=== PATIENT | female | born 1945 | race Caucasian/White ===

== ENCOUNTER → 2022-01-07 10:44 | Outpatient (CLI) | payer MEDICARE, OTHER, SELFPAY ==
[2022-01-07 15:27] LABS: COVID19 -Nasal RAPID Negative (Negative)
== END ==
PROVIDERS: PCP Nurse Practitioner Family; Visit Provider Nurse Practitioner Family
DX: Z20.822 Contact with and (suspected) exposure to COVID-19 (principal)
CPT/HCPCS: 87635; C9803

== ENCOUNTER 2022-01-09 12:06 | Day surgery (SDC) | payer MEDICARE, OTHER, SELFPAY ==
[2022-01-09] VITALS (7 sets, daily range): BP systolic 100–130; BP diastolic 66–84; PULSE 65–73; RESP 15–19; TEMP 36–36.8; O2SAT 95–100; BMI 35.5
--- NOTE | 2022-01-09 | PATH_ITS ---
[facility] Accession Number: [id number] No. of containers..01 Tissue . 01 Material submitted: . colon - ASCENDING COLON POLYP . 02 Diagnosis: Ascending Colon, Polyp, Biopsy: Sessile serrated adenoma. MRV 01/14/2022 1042 Local . 02 Electronically signed: . Dominique Sutton MD, Pathologist NPI- [id number] . 01 Gross description: . ASCENDING COLON POLYP: Received in formalin is 1 fragment(s) of maldonado, soft tissue measuring 0.6 x 0.5 x 0.3 cm submitted entirely in 1 cassette(s) /STEPHANIE 01/10/2022 2211 Local . 02 Pathologist provided ICD-10: D12.2 . 02 CPT . 948272 Specimen Comment: A courtesy copy of this report has been sent to [phone] Performed at: 01 [facility] Cytology [address] [facility], [place], [place] [id number] MD Harry Garcia MD Phone: [phone] Performed at: [address] [facility] [place] [address] [place], [place] [id number] MD Dominique Sutton MD Phone: [phone]
[2022-01-09] MEDS: SODIUM CHLORIDE 0.9% 1,000 ML 84 ML IV (13:33)
--- NOTE | 2022-01-09 13:58 | PM.HP.1 ---
History of Present Illness History of Present Illness Date Patient Seen: 01/09/22 Chief complaint: DX COLONOSCOPY Narrative: Recurrent serrated adenomatous polyps need for follow-up and to rule out serrated polyposis syndrome Patient History Medical History (Updated 01/08/22 @ 16:20 by Kayla Burris RN) Chest pressure Surgical History (Updated 01/08/22 @ 16:20 by Kayla uBrris RN) History of bunionectomy of both great toes History of colonoscopy with polypectomy History of tonsillectomy Family & Social History Social History: household members spouse Tobacco & Substance use: Tobacco type cigarettes Smoking Status Former smoker alcohol intake current alcohol intake frequency 0-2 drinks per day Substance Use Type does not use Meds Home Medications and Allergies Home Medications Medication Instructions Recorded Confirmed Type acyclovir 400 mg tablet 400 mg PO DAILY 01/08/22 01/09/22 History aspirin 81 mg tablet,delayed 81 mg PO DAILY 01/08/22 01/09/22 History release (Aspirin Low Dose) atorvastatin 40 mg tablet 40 mg PO DAILY 01/08/22 01/09/22 History calcium 600 mg capsule 600 mg PO DAILY 01/08/22 01/09/22 History cholecalciferol (vitamin D3) 50 50 mcg PO DAILY 01/08/22 01/09/22 History mcg (2,000 unit) capsule (Vitamin D3) levothyroxine 137 mcg tablet 137 mcg PO DAILY 01/08/22 01/09/22 History losartan 50 mg tablet 50 mg PO BID 01/08/22 01/09/22 History metoprolol succinate 25 mg 25 mg PO DAILY 01/08/22 01/09/22 History tablet,extended release 24 hr multivitamin 1 tab PO DAILY 01/08/22 01/08/22 History paroxetine HCl 10 mg tablet 10 mg PO DAILY 01/08/22 01/08/22 History Allergies Allergy/AdvReac Type Severity Reaction Status Date / Time penicillin V Allergy Severe Unlisted Verified 01/08/22 16:21 Exam Vital Signs (past 8 hours): - 01/09/22 13:20 Temperature 98.3 F Pulse Rate 73 Respiratory Rate 16 Blood Pressure 114/75 Pulse Oximetry 95 Oxygen Delivery Method Room Air Narrative Exam Narrative: Oropharynx free of lesions Chest clear to auscultation percussion Cardiac exam reveals no S3 or murmur Assessment & Plan Assessment & Plan narrative: Serrated adenomatous polyps rule outs serrated polyposis syndrome in just to follow-up on multiple adenomas. Risks, benefits, alternatives have been Time Spent With Patient Critical Care time: I spent a total of [] minutes of critical care time on this patient's care today; this time is exclusive of procedural time.
--- NOTE | 2022-01-09 14:00 | PM.OP.COLON ---
Operative Date/Time/Diagnoses Date of procedure: 01/09/22 Pre-op diagnosis: See indication and findings Procedure & Clinicians Study performed: Colonoscopy Indications: History of multiple serrated polyps and some quite large. Need for follow-up in general but also to rule out serrated polyposis syndrome Surgeon: Torie Mejia Procedure Notes Procedure in detail: After informed consent was obtained the patient was placed in left lateral decubitus position. The video colonoscope was introduced the rectum slowly advanced cecum. On slow withdrawal mucosa was carefully examined. Scope was removed. The patient tolerated procedure well. Blood loss none Complications none Sedation mac Findings 1. Large flat 2.5 x 2 cm polyp with a mucus cap and a yellowish tinge at the distal border of the most proximal tattoo behind a fold. This was selectively injected with saline and in 3 large chunks of polyp were removed. One piece was lost. The remainder of the polyp was treated at 20 w is 0.8 L APC and seen to be completely treated. 2. Otherwise negative colonoscopy to cecum Unfortunately Caroline will need follow-up colonoscopy in 6 months with possible APC to evaluate this area. This can either be done in an a [place] with Dr. Silva or myself. Photographs were taken to be incorporated into our EMR.
== END 2022-01-09 15:23 | disposition home or self-care (01) ==
PROVIDERS: PCP Registered Nurse; Referring Provider Internal Medicine Gastroenterology; Visit Provider Internal Medicine Gastroenterology
PROC: 0DJD8ZZ Inspection of Lower Intestinal Tract, Via Natural or Artificial Opening Endoscopic (ICD-10-PCS; CPT 45378; principal; 2022-01-09 14:00)
DX: Z09 Encounter for follow-up examination after completed treatment for conditions other than malignant neoplasm (principal); Z86.010 Personal history of colon polyps; D12.3 Benign neoplasm of transverse colon
CPT/HCPCS: 45390; J2704

== ENCOUNTER → 2023-01-02 11:54 | Outpatient (CLI) | payer MEDICARE, OTHER, SELFPAY ==
--- NOTE | 2023-01-02 11:56 | DI.MRI.S_ITS ---
PROCEDURE: MR HIP LT WO CON INDICATIONS: Pain in left hip TECHNIQUE: Noncontrast coronal T1 spin echo and STIR through the bony pelvis. Coronal and axial T2 fast spin echo with fat saturation, sagittal T1 spin echo, and oblique axial T2 fast spin echo with fat saturation through the hip. COMPARISON: None. FINDINGS: Image quality: Excellent. Bones and joints: Moderate bilateral hip joint osteoarthritic changes are seen with joint space narrowing, subchondral sclerosis and small marginal osteophyte formation. No fracture or dislocation. Prominence of superior left femoral head neck junction is noted which can be seen associated with CAM type femoral acetabular impingement. Nonspecific oval area of heterogeneously T2 hyperintense signal involving bilateral proximal femoral shaft medullary space is seen and may represent areas of osteonecrosis. No avascular necrosis of the femoral heads. Degenerative disc disease throughout visualized lower lumbar spine is seen. Tendons and ligaments: Distal left gluteus medius tendinosis and low-grade partial-thickness tear is seen at its insertion on the greater trochanter. Distal left gluteus minimus tendinosis is also noted at its insertion on greater trochanter. The nearby proximal iliotibial band also appears intact. The iliopsoas tendon appears intact, without adjacent bursal fluid collections or evidence for impingement syndrome. The origin of the hamstring tendon is intact at the ischial tuberosity, as well as the associated sacrotuberous ligament. The straight and reflected heads of the rectus femoris muscle origin appear intact, as well as the conjoint tendon. The ligamentum teres appears intact where visualized. Labrum and cartilage: There is diffuse loss of cartilage in left femoral head. Signal abnormality and contour irregularity involving superior anterior left hip labrum at 12 to 1 o'clock position is seen suggestive of superior anterior left hip labral tear. Soft tissues: Visualized muscles demonstrate normal bulk and internal signal. Quadratus femoris muscle demonstrates no internal edema to suggest ischiofemoral impingement. The proximal sciatic neurovascular bundle appears normal adjacent to the hamstring tendons. No free pelvic fluid. Bladder wall thickness is normal. Genitourinary structures and bowel loops appear normal where visualized. IMPRESSION: 1. Symmetric appearing moderate bilateral hip joint osteoarthritis. No hip fracture or dislocation. No evidence of avascular necrosis of femoral head. Nonspecific marrow signal abnormality involving proximal bilateral femoral shaft medullary space which may indicate areas of early osteonecrosis more notably in left proximal femoral shaft suggest clinical correlation and radiographic follow-up. 2. Distal left gluteus medius tendinosis and low-grade partial-thickness tear. Distal left gluteus minimus tendinosis. No other muscle or tendon signal abnormalities. 3. Suggestion of superior anterior left hip labral tear at 12 to 1 o'clock position. Dictated by: Luis Moreno M.D. on 01/02/2023 at 20:40 Approved by: Luis Moreno M.D. on 01/02/2023 at 21:41
--- NOTE | 2023-01-02 11:56 | DI.MRI.S_ITS ---
PROCEDURE: MR LUMBAR SPINE WO CON INDICATIONS: Radiculopathy, lumbar region TECHNIQUE: Noncontrast sagittal T1 spin echo and T2 fast echo, sagittal STIR, and T2 fast spin echo through the lumbar spine. In cases with scoliosis, additional coronal T2 fast spin echo may be performed. COMPARISON: None. FINDINGS: Image quality: Excellent. Alignment and Curvature: There is normal bony alignment. Bone Marrow: Marrow is of normal overall signal. No acute vertebral body compression fractures. Spinal Cord: Conus medullaris terminates at the T12-L1 level. Visualized cord demonstrates normal signal and size. Paraspinous Soft Tissues: No paravertebral masses. T12-L1: Mild central posterior disc protrusion. This indents on the thecal sac resulting in mild canal stenosis. Additionally, there is a right posterior lateral disc protrusion which narrows the right lateral recess as well as the right foramen. There is flattening deformity on the exiting right T12 nerve root. L1-L2: Disc bulge. Facet hypertrophy. Epidural lipomatosis. Moderate canal stenosis. Mild left foraminal narrowing. L2-L3: Disc bulge. Facet hypertrophy. Short pedicles. Epidural lipomatosis. Moderate canal stenosis. [id number] left foraminal narrowing. L3-L4: Short pedicles. Disc bulge. Facet and ligament hypertrophy. Moderate canal stenosis. No significant foraminal stenosis. L4-L5: Short pedicles. Prominent facet hypertrophy. Moderate central posterior disc protrusion. Epidural lipomatosis. Severe canal stenosis. Moderate bilateral foraminal narrowing with flattening deformity on the exiting bilateral L4 nerve roots. L5-S1: Bilateral facet hypertrophy. No canal stenosis. No significant foraminal stenosis. IMPRESSION: 1. Patient has underlying short pedicles, as well as multilevel facet arthropathy. 2. There is multilevel canal stenosis extending from T12-L1 through L4-L5. 3. At T12-L1, a central posterior disc protrusion contributes to canal stenosis. There is also a right posterior lateral disc protrusion. 4. At L4-L5, a central posterior disc protrusion contributes to the underlying canal stenosis and foraminal stenosis, resulting in severe canal stenosis. 5. Canal stenosis is moderate at L1-L2, moderate at L2-L3, moderate at L3-L4, severe at L4-L5. 6. Multilevel foraminal narrowing as described above. Dictated by: Live Bobo M.D. on 01/02/2023 at 14:11 Approved by: Live Bobo M.D. on 01/02/2023 at 14:17
== END ==
PROVIDERS: PCP Registered Nurse; Referring Provider Registered Nurse; Visit Provider Registered Nurse
DX: M47.26 Other spondylosis with radiculopathy, lumbar region (principal); M47.27 Other spondylosis with radiculopathy, lumbosacral region; M51.16 Intervertebral disc disorders with radiculopathy, lumbar region; M48.05 Spinal stenosis, thoracolumbar region; M48.061 Spinal stenosis, lumbar region without neurogenic claudication; M16.0 Bilateral primary osteoarthritis of hip; S76.012A Strain of muscle, fascia and tendon of left hip, initial encounter; M25.552 Pain in left hip
CPT/HCPCS: 72148; 73721

== ENCOUNTER 2023-01-22 08:56 | Day surgery (SDC) | payer MEDICARE, OTHER, SELFPAY ==
--- NOTE | 2023-01-22 | PATH_ITS ---
[facility] Accession Number: [id number] No. of containers..02 Tissue . 01 Material submitted: . PART A: sigmoid colon - RECTUS SIGMOID PART B: rectum - ANAL RECTAL JUNCTION . 01 Diagnosis: A. Rectosigmoid Colon, Biopsy: Hyperplastic colonic mucosa. Negative or active, chronic, and microscopic colitis. Negative for dysplasia and malignancy. . B. Anorectal Junction, Biopsy: Fragments of traditional serrated adenoma. Please see comment. No evidence of malignancy. MRV 01/28/2023 1418 Local . 01 Comment: B. Current surveillance guidelines recommend that a traditional serrated adenoma should be treated similar to an advanced adenoma. Complete polypectomy and shortened surveillance interval are recommended. . 01 Electronically signed: . Dominique Sutton MD, Pathologist NPI- [id number] . 01 Gross description: . Part A: RECTUS SIGMOID: Received in formalin are 4 fragment(s) of maldonado, soft tissue measuring 0.2 x 0.2. x 0.2 cm to 0.2 x 0.1 x 0.1 cm submitted entirely in 1 cassette(s) Part B: ANAL RECTAL JUNCTION: Received in formalin are 3 fragment(s) of maldonado, soft tissue measuring 0.3 x 0.1 x 0.1 cm to 0.2 x 0.1 x 0.1 cm submitted entirely in 1 cassette(s) /CPE 01/24/2023 1038 Local . 01 Pathologist provided ICD-10: D12.8 . 01 CPT . 905392, 396673 Specimen Comment: A courtesy copy of this report has been sent to [phone] Performed at: 01 [facility] Cytology [address] [place] [address] [address] [facility], [place], [place] [id number] MD Harry Garcia MD Phone: [phone]
[2023-01-22 09:23] VITALS: BMI 37.1
[2023-01-22 09:38] VITALS: BP 116/79; PULSE 68; RESP 16; TEMP 37; O2SAT 96
--- NOTE | 2023-01-22 10:38 | P.OP.COLON_ITS ---
Operative Date/Time/Diagnoses Date of procedure: 01/22/23 Pre-op diagnosis: See indication and findings Procedure & Clinicians Study performed: Colonoscopy Indications: History of large difficult to remove colon polyps need for follow-up colonoscopy Surgeon: Torie Mejia Procedure Notes Procedure in detail: After informed consent was obtained patient was placed left lateral decubitus position. The video colonoscope was introduced the rectum slowly advanced cecum. Preparation was good. On slow withdrawal mucosa was carefully examined. The scope was removed. The patient tolerated procedure well. Blood loss none Complications none Sedation mac Findings 1. Large tattoo in the mid right colon. This was completely free of any adenomatous appearing tissue. 2. Additional smaller tattoo at 60 cm. Also free of any lesion 3. Five rectosigmoid polyps ring in size from 2 to 5 mm. All Jumbo biopsy re moved completely. 4. Skin tag versus polyp just inside the anal verge probably measuring 8 mm. The distal border seemed contiguous with moderate-sized hemorrhoid. Biopsies were therefore taken to rule out adenoma before deciding on therapy. Will be in touch with Caroline regarding her pathology.
--- NOTE | 2023-01-22 10:43 | P.HP_ITS ---
History of Present Illness History of Present Illness Date Patient Seen: 01/22/23 Chief complaint: Dx Colonoscopy w/poss bx Narrative: History of large and difficult to remove colon polyps with last procedure 1 year ago requiring APC. Need for follow-up colonoscopy. [facility] Medical History (Updated 01/08/22 @ 16:20 by Kayla Burris, RN) Chest pressure Surgical History (Updated 01/08/22 @ 16:20 by Kayla Burris RN) History of bunionectomy of both great toes History of colonoscopy with polypectomy History of tonsillectomy Social History household members: spouse Smoking Status: Former smoker alcohol intake: current Meds Home Medications and Allergies Home Medications Medication Instructions Recorded Confirmed Type acyclovir 400 mg tablet 400 mg PO DAILY 01/08/22 01/22/23 History aspirin 81 mg tablet,delayed 81 mg PO DAILY 01/08/22 01/22/23 History release (Roxann Low Dose Aspirin) atorvastatin 40 mg tablet 40 mg PO DAILY 01/08/22 01/22/23 History calcium 600 mg capsule 600 mg PO DAILY 01/08/22 01/22/23 History cholecalciferol (vitamin D3) 50 50 mcg PO DAILY 01/08/22 01/22/23 History mcg (2,000 unit) capsule (Vitamin D3) levothyroxine 137 mcg tablet 137 mcg PO DAILY 01/08/22 01/22/23 History losartan 50 mg tablet 50 mg PO BID 01/08/22 01/22/23 History metoprolol succinate 25 mg 25 mg PO DAILY 01/08/22 01/22/23 History tablet,extended release 24 hr multivitamin 1 tab PO DAILY 01/08/22 01/22/23 History paroxetine HCl 10 mg tablet 10 mg PO DAILY 01/08/22 01/22/23 History Allergies Allergy/AdvReac Type Severity Reaction Status Date / Time penicillin V Allergy Severe Swelling Verified 01/22/23 09:16 of Lip/Tongue/Throat Exam Vital Signs (past 8 hours): - 01/22/23 09:38 Temperature 98.6 F Pulse Rate 68 Respiratory Rate 16 Blood Pressure 116/79 Pulse Oximetry 96 Oxygen Delivery Method Room Air Oxygen Delivery Method Room Air Narrative Exam Narrative: Oropharynx free of lesions Chest clear to auscultation percussion Cardiac exam reveals no S3 or murmur Assessment & Plan Assessment & Plan narrative: History of large advanced colon polyps. Need to follow-up on last polypectomy 1 year ago to ensure complete removal. Risks, benefits, alternatives have been explained.
[2023-01-22 10:44] VITALS: BP 104/53; PULSE 59; RESP 92; TEMP 36.6; O2SAT 0
[2023-01-22 10:49] VITALS: BP 102/68; BP 91/64; PULSE 62; PULSE 69; RESP 14; RESP 18; TEMP 35.9; TEMP 36.4; O2SAT 94; O2SAT 98
[2023-01-22 10:59] VITALS: BP 103/76; PULSE 63; RESP 14; TEMP 36.3; O2SAT 98
[2023-01-22 11:03] VITALS: BP 107/78; PULSE 61; RESP 16; TEMP 36.3; O2SAT 98
== END 2023-01-22 11:17 | disposition home or self-care (01) ==
PROVIDERS: PCP Registered Nurse; Referring Provider Internal Medicine Gastroenterology; Visit Provider Internal Medicine Gastroenterology
PROC: 0DJD8ZZ Inspection of Lower Intestinal Tract, Via Natural or Artificial Opening Endoscopic (ICD-10-PCS; CPT 45378; principal; 2023-01-22 10:00)
DX: Z09 Encounter for follow-up examination after completed treatment for conditions other than malignant neoplasm (principal); Z86.010 Personal history of colon polyps; K64.8 Other hemorrhoids; D12.8 Benign neoplasm of rectum
CPT/HCPCS: 45380; J2704